=== PATIENT | male | born 1985 | race Caucasian/White ===

== ENCOUNTER 2018-02-11 20:26 | Emergency (ER) | payer OTHER ==
[2018-02-11 20:31] VITALS: RESP 18; TEMP 97.4
[2018-02-11] MEDS ORDERED: KETOROLAC 30 MG/ML 1 ML VIAL IVP STA (20:54)
--- NOTE | 2018-02-11 20:56 | ED ---
Male Urogenital HPI - General Chief complaint: Urogenital Stated complaint: BLOOD IN URINE Time Seen by Provider: 02/11/18 20:50 Source: patient, RN notes reviewed Mode of arrival: ambulatory Limitations: no limitations - History of Present Illness Initial comments: This is a 32-year-old male with a history of chronic back pain states he's had about one week of pain in his flank area and today started developing hematuria no fevers chills nausea vomiting sweats he states pain is about 4/10 in severity he states he does have chronic back pain so he was a contributing his pain to his chronic back pain no personal history kidney stones he does have remote family history kidney stones no fevers chills nausea vomiting sweats no constipation diarrhea. No overt abdominal pain at this time. - Related Data Home Medications Medication Instructions Recorded Confirmed HYDROcodone/APAP 7.5-325MG [[place] 1 tab PO Q4H PRN 02/11/18 02/11/18 7.5-325] Previous Rx's Medication Instructions Recorded Ibuprofen 800 mg PO Q6HR PRN #20 tablet 02/11/18 Tamsulosin HCl [Flomax] 0.4 mg PO DAILY #7 cap 02/11/18 Allergies Allergy/AdvReac Type Severity Reaction Status Date / Time No Known Allergies Allergy Verified 02/11/18 20:35 Review of Systems ROS Statement: Those systems with pertinent positive or pertinent negative responses have been documented in the HPI. ROS Other: All systems not noted in ROS Statement are negative. Past Medical History Past Medical History: No Reported History History of Any Multi-Drug Resistant Organisms: None Reported Additional Past Surgical History / Comment(s): Carpal tunnel Past Psychological History: No Psychological Hx Reported Smoking Status: Current every day smoker Past Alcohol Use History: None Reported Past Drug Use History: None Reported General Exam - General Exam Comments Initial Comments: Is a well-developed well-nourished awake alert oriented 3 male Limitations: no limitations General appearance: alert, in no apparent distress Head exam: Present: atraumatic, normocephalic, normal inspection Eye exam: Present: normal appearance, PERRL, EOMI. Absent: scleral icterus, conjunctival injection, periorbital swelling ENT exam: Present: normal exam, mucous membranes moist Neck exam: Present: normal inspection. Absent: tenderness, meningismus, lymphadenopathy Respiratory exam: Present: normal lung sounds bilaterally. Absent: respiratory distress, wheezes, rales, rhonchi, stridor Cardiovascular Exam: Present: regular rate, normal rhythm, normal heart sounds. Absent: systolic murmur, diastolic murmur, rubs, gallop, clicks GI/Abdominal exam: Present: soft, normal bowel sounds. Absent: distended, tenderness, guarding, rebound, rigid Extremities exam: Present: normal inspection, full ROM, normal capillary refill. Absent: tenderness, pedal edema, joint swelling, calf tenderness Back exam: Present: normal inspection, paraspinal tenderness. Absent: CVA tenderness (R), CVA tenderness (L), vertebral tenderness, rash noted Neurological exam: Present: alert, oriented X3, CN II-XII intact Psychiatric exam: Present: normal affect, normal mood Skin exam: Present: warm, dry, intact, normal color. Absent: rash Course Vital Signs 02/11/18 20:28 Temperature 97.4 F L Pulse Rate 92 Respiratory 18 Rate Blood Pressure 139/74 O2 Sat by Pulse 100 Oximetry Medical Decision Making - Medical Decision Making The patient is currently pain-free I did have one discussed with him the presentation is consistent with renal colic and hematuria. Patient be placed on appropriate medication we did have a long discussion regarding Flomax and oral fluids. - Lab Data Result diagrams: 02/11/18 21:06 02/11/18 21:06 Lab Results 02/11/18 02/11/18 02/11/18 Range/Units 21:06 21:06 21:06 WBC 8.0 (3.8-10.6) k/uL RBC 4.66 (4.30-5.90) m/uL Hgb 14.1 (13.0-17.5) gm/dL Hct 39.7 (39.0-53.0) % MCV 85.1 (80.0-100.0) fL MCH 30.2 (25.0-35.0) pg MCHC 35.4 (31.0-37.0) g/dL RDW 11.9 (11.5-15.5) % Plt Count 327 (150-450) k/uL Neutrophils % 59 % Lymphocytes % 32 % Monocytes % 5 % Eosinophils % 2 % Basophils % 1 % Neutrophils # 4.7 (1.3-7.7) k/uL Lymphocytes # 2.6 (1.0-4.8) k/uL Monocytes # 0.4 (0-1.0) k/uL Eosinophils # 0.2 (0-0.7) k/uL Basophils # 0.1 (0-0.2) k/uL Sodium 142 (137-145) mmol/L Potassium 4.0 (3.5-5.1) mmol/L Chloride 102 (98-107) mmol/L Carbon Dioxide 26 (22-30) mmol/L Anion Gap 14 mmol/L BUN 23 H (9-20) mg/dL Creatinine 0.90 (0.66-1.25) mg/dL Est GFR (CKD-EPI)AfAm >90 (>60 ml/min/1.73 sqM) Est GFR (CKD-EPI)NonAf >90 (>60 ml/min/1.73 sqM) Glucose 78 (74-99) mg/dL Calcium 9.5 (8.4-10.2) mg/dL Total Bilirubin 0.3 (0.2-1.3) mg/dL AST 27 (17-59) U/L ALT 57 (21-72) U/L Alkaline Phosphatase 77 (38-126) U/L Total Protein 7.7 (6.3-8.2) g/dL Albumin 4.5 (3.5-5.0) g/dL Urine Color Yellow Urine Appearance Clear (Clear) Urine pH 7.0 (5.0-8.0) Ur Specific [place] 1.024 (1.001-1.035) Urine Protein Negative (Negative) Urine Glucose (UA) Negative (Negative) Urine Ketones Negative (Negative) Urine Blood Negative (Negative) Urine Nitrite Negative (Negative) Urine Bilirubin Negative (Negative) Urine Urobilinogen 4.0 (<2.0) mg/dL Ur Leukocyte Esterase Negative (Negative) - Radiology Data Radiology results: report reviewed (I did review the imaging and report no acute findings), image reviewed Disposition Clinical Impression: Renal colic, Hematuria Disposition: HOME SELF-CARE Condition: Good Instructions: Renal Colic (ED), Hematuria (ED) Prescriptions: Ibuprofen 800 mg PO Q6HR PRN #20 tablet PRN Reason: Pain Tamsulosin HCl [Flomax] 0.4 mg PO DAILY #7 cap Referrals: Jessica Olivia MD [Primary Care Provider] - 1-2 days
[2018-02-11 21:15] LABS: Basophils # (A) 0.1 k/uL (0-0.2); Basophils % (A) 1 %; Eosinophils # (A) 0.2 k/uL (0-0.7); Eosinophils % (A) 2 %; HCT 39.7 % (39.0-53.0); HGB 14.1 gm/dL (13.0-17.5); Lymphocytes # (A) 2.6 k/uL (1.0-4.8); Lymphocytes % (A) 32 %; MCH 30.2 pg (25.0-35.0); MCHC 35.4 g/dL (31.0-37.0); MCV 85.1 fL (80.0-100.0); Monocytes # (A) 0.4 k/uL (0-1.0); Monocytes % (A) 5 %; Neutrophils # (A) 4.7 k/uL (1.3-7.7); Neutrophils % (A) 59 %; Platelet Count 327 k/uL (150-450); RBC 4.66 m/uL (4.30-5.90); RDW 11.9 % (11.5-15.5)
[2018-02-11 21:22] LABS: Appearance,Urine Clear (Clear); Bilirubin,Urine Negative (Negative); Blood,Urine Negative (Negative); Color,Urine Yellow; Glucose,Urine (UA) Negative (Negative); Ketones,Urine Negative (Negative); Leukocyte Esterase,Urine Negative (Negative); Nitrite,Urine Negative (Negative); Protein,Urine Negative (Negative); Specific Gravity,Urine 1.024 (1.001-1.035)
[2018-02-11 21:28] LABS: ALT 57 U/L (21-72); AST 27 U/L (17-59); Albumin 4.5 g/dL (3.5-5.0); Alkaline Phosphatase 77 U/L (38-126); Blood Urea Nitrogen 23 mg/dL (9-20); Calcium 9.5 mg/dL (8.4-10.2); Carbon Dioxide 26 mmol/L (22-30); Chloride 102 mmol/L (98-107); Glucose 78 mg/dL (74-99); Total Bilirubin 0.3 mg/dL (0.2-1.3); Total Protein 7.7 g/dL (6.3-8.2)
--- NOTE | 2018-02-11 21:31 | XR ---
EXAMINATION TYPE: XR abdomen 1V DATE OF EXAM: 02/11/2018 CLINICAL DATA: 32-year-old male with bilateral flank pain, [facility] COMPARISON: None FINDINGS: Lung bases are clear. No evidence for free intraperitoneal air. No dilated small bowel or air-fluid levels. Scattered air and stool seen throughout the colon extendi ng distally into the rectum. Mild stool burden. No suspicious calcifications identified. IMPRESSION: No evidence of bowel obstruction or free intraperitoneal air.
[2018-02-11 21:37] LABS: Anion Gap 14 mmol/L; Sodium 142 mmol/L (137-145)
[2018-02-11 22:12] VITALS: BP 124/70; PULSE 70
== END 2018-02-11 22:11 | disposition home or self-care (01) ==
LOC: EC 20:26
DX: N23 Unspecified renal colic (principal); F17.200 Nicotine dependence, unspecified, uncomplicated
CPT/HCPCS: 99284; 96374; 36415; 80053; 85025; 81003; 87086; 87077; 87186; 74018; J1885

== ENCOUNTER → 2019-04-05 | Outpatient (CLI) | payer OTHER ==
--- NOTE | 2019-04-05 10:39 | XR ---
EXAMINATION TYPE: XR orbit detect foreign body DATE OF EXAM: 04/05/2019 COMPARISON: NONE HISTORY: Pre MRI clearance TECHNIQUE: 3 views of the orbits are submitted. FINDINGS: No evidence for radiopaque foreign bodies. The patient is cleared for MRI. IMPRESSION: The patient is cleared for MRI.
--- NOTE | 2019-04-05 12:21 | MR ---
EXAMINATION TYPE: MR brain wo con DATE OF EXAM: 04/05/2019 COMPARISON: None HISTORY: Epilepsy CONTRAST: Performed utilizing 0 mL intravenous Gadavist gadolinium contrast. TECHNIQUE: Multiplanar, multiecho imaging on a 3.0 Anali magnet is performed through the brain. Stud y is performed within 24 hours of arrival to the hospital. The craniovertebral junction is normal. The pituitary is normal. Normal vascular flow voids are wit hin the visualized intracranial cerebral vasculature. Diffusion-weighted imaging is performed. No abnormal hyperintensity is present to suggest an acute i ntracranial infarct or acute ischemic change. Couple small white matter changes within the medial inferior left basal ganglion and within the periv entricular white matter, not out of portion to the patient age. Ventricles and sulci are appropriate for the patient age. Temporal lobes are symmetrical abnormal sig nal. Mucosal thickening is within the right frontal sinus. Mild mucosal thickening air cells. IMPRESSIONS: 1. No suspicious acute changes MRI brain
== END | disposition home or self-care (01) ==
LOC: RADMRIMAIN 10:05
PROVIDERS: ATTEND Psychiatry & Neurology Neurology
DX: G40.109 Localization-related (focal) (partial) symptomatic epilepsy and epileptic syndromes with simple partial seizures, not intractable, without status epilepticus (principal)
CPT/HCPCS: 70030; 70551

== ENCOUNTER → 2019-05-11 | Outpatient (CLI) | payer OTHER ==
[2019-05-11 11:47] LABS: Basophils # (A) 0.1 k/uL (0-0.2); Basophils % (A) 1 %; Eosinophils # (A) 0.2 k/uL (0-0.7); Eosinophils % (A) 3 %; HCT 41.5 % (39.0-53.0); HGB 14.2 gm/dL (13.0-17.5); Lymphocytes # (A) 1.9 k/uL (1.0-4.8); Lymphocytes % (A) 38 %; MCH 30.1 pg (25.0-35.0); MCHC 34.4 g/dL (31.0-37.0); MCV 87.8 fL (80.0-100.0); Mean Platelet Volume 7.4; Monocytes # (A) 0.3 k/uL (0-1.0); Monocytes % (A) 5 %; Neutrophils # (A) 2.6 k/uL (1.3-7.7); Neutrophils % (A) 51 %; Platelet Count 247 k/uL (150-450); RBC 4.72 m/uL (4.30-5.90); RDW 13.9 % (11.5-15.5); WBC 5.1 k/uL (3.8-10.6)
[2019-05-11 16:59] LABS: Valproic Acid (Depakene) 65.4 ug/mL (50.0-100.0)
== END ==
LOC: LABWHC1 10:31
PROVIDERS: ATTEND Psychiatry & Neurology Neurology
DX: G40.109 Localization-related (focal) (partial) symptomatic epilepsy and epileptic syndromes with simple partial seizures, not intractable, without status epilepticus (principal)
CPT/HCPCS: 36415; 80164; 84450; 84460; 85025